=== PATIENT | male | born 1960 | race Two or more races ===

== ENCOUNTER 2025-09-19 10:36 | Emergency (ER) | payer MEDICARE, MEDICAID, SELFPAY ==
--- NOTE | ~2025-09-19 | XR_ITS ---
EXAMINATION: XR FOOT, LEFT CLINICAL INFORMATION: infection, concern for osteo COMPARISON: None available. TECHNIQUE: AP, lateral, and oblique views of the left foot. FINDINGS: There is a moderate size calcaneal heel and retrocalcaneal enthesophyte. No visible acute fracture, dislocation or subluxation seen. The soft tissues are normal. XR/XR foot LT min 3V IMPRESSION: Multiple left foot exam except for moderate size calcaneal heel and retrocalcaneal enthesophyte. Electronically signed by: August Wells MD 09/19/2025 01:56 PM EST
--- NOTE | ~2025-09-19 | XR_ITS ---
EXAMINATION: XR KNEE 4 OR MORE VIEWS LEFT HISTORY: fall COMPARISON: There are no prior studies available for comparison. FINDINGS: Four views of the left knee are submitted. Osseous mineralization is normal. There is no fracture or dislocation. There is moderate osteoarthritis of the medial compartment and mild osteoarthritis of the patellofemoral compartment, with joint space narrowing and osteophyte formation. There is no joint effusion. There are vascular calcifications. XR/XR knee LT 4V IMPRESSION: Osteoarthritis of the left knee as described. Electronically signed by: Raleigh Spears MD 09/19/2025 11:32 AM [facility]
[2025-09-19 10:49] VITALS: BP 143/67; PULSE 76; RESP 20; TEMP 36.7; O2SAT 97; BMI 28.7
--- NOTE | 2025-09-19 10:50 | ED_ITS ---
HPI - Extremity Injury (Lower) General Chief Complaint: Skin/Abscess/Foreign Body Stated Complaint: Left Foot Infection Time Seen by Provider: 09/19/25 12:51 Source: patient Mode of arrival: ambulatory Limitations: no limitations History of Present Illness ED Provider: Juliane Smallwood PA-C HPI Narrative: Patient is a 65 year old male with a history of DM, HLD, fibromyalgia, chronic back pain, OUD now on methadone, GERD, OA, and VICTORIA presenting to the emergency department today with concerns over his left 3rd toe and left knee. Patient states that he fell yesterday and has been having left knee pain since. Patient states that he is also on Cephalexin for a left middle toe infection. Patient states that he is concerned that the toe is getting worse Patient denies any other complaints at this time. Related Data Previous Rx's ?Medication ?Instructions ?Recorded doxycycline hyclate 100 mg tablet 100 mg PO BID 7 days #14 tabs 09/19/25 Allergies Allergy/AdvReac Type Severity Reaction Status Date / Time celecoxib (Celebrex) Allergy Unknown Unknown Verified 09/19/25 10:55 bees Allergy Unknown Anaphylaxis Uncoded 09/19/25 10:55 Review of Systems 2 Constitutional: Constitutional: Reports as per HPI Eyes: Eyes: Reports as per HPI ENT: Reports as per HPI Cardiovascular: Cardiovascular: Reports as per HPI Respiratory: Respiratory: Reports as per HPI Gastrointestinal: Gastrointestinal: Reports as per HPI Genitourinary: Genitourinary: Reports as per HPI Musculoskeletal: Musculoskeletal: Reports as per HPI Integumentary/Breasts: Skin/Breast: Reports as per HPI Neurologic: Reports as per HPI Psychiatric: Psychiatric: Reports as per HPI Endocrine: Endocrine: Reports as per HPI Hematologic/Lymphatic: Hematologic/Lymphatic: Reports as per HPI Allergic/Immunologic: Allergic/Immunologic: Reports as per HPI PMFSH Past Medical History Attestation statement: The following information was validated with the patient. Source: old records reviewed and nursing notes reviewed Social History Social History Advance Directives: No Advance Directives Information Provided: No Do you have a plan to hurt others: No Plan Physical Exam 2 Vital Signs: Vital Signs: Last Vital Signs Temp 98.0 F 09/19/25 14:46 Pulse 76 09/19/25 14:46 Resp 20 09/19/25 14:46 BP 143/67 H 09/19/25 14:46 Pulse Ox 97 09/19/25 14:46 O2 Del Method Room Air 09/19/25 14:46 BMI result Body Mass Index 28.7 Const: General: cooperative, no acute distress, alert and awake Nutritional Appearance: well nourished Orientation/consciousness: patient oriented x3 HEENT: Head: Yes normal to inspection and Yes atraumatic Ears: hearing grossly normal bilaterally and external ears normal General nose exam: Normal external nose present, no nasal discharge noted and no epistaxis Face and sinus: Yes normal facial exam, No abrasion and No laceration Mouth: Normal oral and palatal mucosa present, no drooling and no muffled voice Eyes: General: appearance normal, both eyes and all related structures P eriorbital: periorbital findings normal Eyelids: Yes eyelids normal C onjunctivae: conjunctivae normal Pupils: Equal, round and reactive pupils present EOM: EOMs intact bilaterally Neck: Neck: Yes normal visual inspection and Yes full ROM Resp: Effort & Inspection: normal respiratory effort and able to speak in complete sentences Neuro: General: patient oriented x3, moves all extremities and CN's II-XI intact bilaterally Cranial nerves: Yes Equal, round and reactive pupils present Cognition (Neuro): normal cognition Extrem: Other: Toe nails yellow on both feet Loosely attached nail to left 3rd toe General: Yes full ROM and Yes capillary refill normal Psych: Appearance: grossly normal Mental Status: mental status grossly normal Affect: normal affect Attitude: cooperative Thought process: N ormal thought process present Thought content: Normal thought content present Insight: Good insight present (Psych) Course Course Course Narrative: This is a Rapid Medical Exam performed in triage by Kell Beltran PA-C. Full HPI, ROS and PE to be performed by primary ED provider. 65 yo M w/pmhx DM, in wheelchair, presenting to the ED c/o L foot infection x few days. Admits to fall before the holidays & believes this caused sx - admits to L knee pain & L foot pain. Admits to difficulty ambulating due to pain. Started on PO Abx by Homeless senior care nurse PE: +B/L LE pitting edema, +L foot 2nd toenail dislodged. some malodor Plan: Labs, XR Medical Decision Making Medical Decision Making MDM Narrative: Patient is a 65 year old male with a history of DM, HLD, fibromyalgia, chronic back pain, OUD now on methadone, GERD, OA, and VICTORIA presenting to the emergency department today with concerns over his left 3rd toe and left knee. Patient's physical exam was as noted in the physical exam portion of this note. Patient's blood work showed an ESR of 86 and CRP of 3.36. Patient's left knee x-ray showed no acute process. Patient's left foot x-ray showed no acute process. Patient's clinical presentation is most consistent with left 3rd toe cellulitis. Given patient is already on cephalexin, will add Doxycycline and refer to podiatry for continued foot care. I explained my physical exam findings as well as all test results to the patient. I answered all questions asked by the patient. I stressed the importance of the patient taking his medication as directed (either prescribed or as the over the counter packaging recommends). I stressed the importance of the patient following up with his primary care provider and the podiatry team. I stressed the importance of the patient returning to the emergency department immediately if his symptoms were to worsen or if he were to develop any dizziness, shortness of breath, difficulty breathing, chest pain, blurry vision, loss of vision, nausea, vomiting, abdominal pain, fever, chills, back pain, or any other complaints. Patient verbalized agreement and understanding with this treatment plan and discharge. Differential Diagnosis Differential Diagnoses: The differential diagnosis associated with the presentation includes Cellulitis Knee pain Osteomyelitis Admission/Observation Consideration of admission/observation: Escalation of care including admission/observation considered Patient would have been admitted to the hospital had his work up had any findings where hospital admission was appropriate and his clinical presentation warranted hospital admission. Lab Data [facility] Lab Attestation statement: I reviewed the patient's lab results. My interpretation of these results are in the MDM Rationale portion of this note. 09/19/25 11:13 09/19/25 11:13 Labs: Lab Results 09/19/25 09/19/25 Range/Units 11:13 12:59 WBC 10.0 (4.8-10.8) X10*3/uL RBC 4.53 L (4.60-5.80) X10*6/uL Hgb 12.7 L (14.0-18.0) g/dl Hct 40.1 L (42.0-52.0) % MCV 88.5 (80.0-98.0) fL MCH 28.0 (27.0-33.0) pg MCHC 31.7 (31.0-36.0) g/dl RDW 15.1 (11.0-16.0) % Plt Count 371 (160-400) X10*3/uL MPV 9.8 (9.4-12.4) fL Immature Gran % (Auto) 0.2 (0.0-0.4) % Neut % (Auto) 49.7 (45-73) % Lymph % (Auto) 32.2 (20-40) % [place] % (Auto) 10.4 (2-11) % Eos % (Auto) 6.6 H (0-4) % Baso % (Auto) 0.9 (0-2) % Lymph # (Auto) 3.2 (1.2-4.9) X10*3/uL [place] # (Auto) 1.0 (0.1-1.2) X10*3/uL Eos # (Auto) 0.7 H (0.0-0.4) X10*3/uL Baso # (Auto) 0.1 (0.0-0.2) X10*3/uL Abs Immat Gran (auto) 0.02 (0.00-0.03) X10*3/uL Absolute Neuts (auto) 4.9 (2.0-8.3) x10*3/uL Absolute Nucleated RBC 0.000 (0.0-0.012) X10*3/uL Nucleated RBC % (auto) 0.0 (0.0-0.2) /100WBC ESR 86 H (1-20) MM/HR Sodium 143 (135-145) mmol/L Potassium 3.9 (3.3-5.1) mmol/L Chloride 108 (96-108) mmol/L Carbon Dioxide 26 (22-29) mmol/L Anion Gap 13 (12-20) BUN 23 H (9-16) mg/dL Creatinine 1.10 (0.5-1.4) mg/dL Estim Creat Clear Calc 74.8 Estimated GFR > 60 Random Glucose 76 (60-115) mg/dL Lactic Acid 1.1 (0.5-2.0) mmol/L Calcium 9.0 (8.4-10.2) mg/dL Magnesium 2.0 (1.6-2.6) mg/dL Total Bilirubin 0.3 (0.0-1.0) mg/dL Direct Bilirubin 0.1 (0.0-0.5) mg/dL AST 34 (5-37) U/L ALT 18 (0-40) U/L Alkaline Phosphatase 91 (39-117) U/L C-Reactive Protein 3.36 H (< or = 0.50) mg/dL NT-Pro-B Natriuret Pep 75.3 (<300) pg/mL Total Protein 8.2 H (6.5-8.0) g/dL Albumin 4.3 (3.5-5.0) g/dL Independent Interpretation I performed an independent interpretation of an: Plain X-Ray Interpretation: My interpretation is in agreement with the radiologist's impression of these imaging studies as written below. EXAMINATION: XR FOOT, LEFT CLINICAL INFORMATION: infection, concern for osteo COMPARISON: None available. TECHNIQUE: AP, lateral, and oblique views of the left foot. FINDINGS: There is a moderate size calcaneal heel and retrocalcaneal enthesophyte. No visible acute fracture, dislocation or subluxation seen. The soft tissues are normal. XR/XR foot LT min 3V IMPRESSION: Multiple left foot exam except for moderate size calcaneal heel and retrocalcaneal enthesophyte. Electronically signed by: August Wells MD 09/19/2025 01:56 PM [facility] Dictated By: August Wells MD Signed By: Electronically signed by August Wells MD 09/19/25 1356 EXAMINATION: XR KNEE 4 OR MORE VIEWS LEFT HISTORY: fall COMPARISON: There are no prior studies available for comparison. FINDINGS: Four views of the left knee are submitted. Osseous mineralization is normal. There is no fracture or dislocation. There is moderate osteoarthritis of the medial compartment and mild osteoarthritis of the patellofemoral compartment, with joint space narrowing and osteophyte formation. There is no joint effusion. There are vascular calcifications. XR/XR knee LT 4V IMPRESSION: Osteoarthritis of the left knee as described. Electronically signed by: Raleigh Spears MD 09/19/2025 11:32 AM EST Dictated By: Raleigh Spears MD Signed By: Electronically signed by Raleigh Spears MD 09/19/25 1132 Radiology Impression Discussion of test interpretation with radiology: I have reviewed the radiologist's reading. Prescription Management I considered prescription management with: Antibiotic (patient prescribed doxycycline and instructed to continue taking his already prescribed cephalexin) Chronic Conditions Patient?s care impacted by: Diabetes Discharge Plan Discharge Clinical Impression: Cellulitis Qualifiers: Site of cellulitis: extremity Site of cellulitis of extremity: toe Laterality: left Qualified Code(s): L03.032 - Cellulitis of left toe Patient Disposition: Home, Self-Care Instructions: Cellulitis (ED) Additional Instructions: Your work up today was reassuring. There is no evidence of infection into the bone. Continue taking the antibiotic you already have prescribed. I have prescribed you an additional one that you should take. Given the state of your toes / toe nails - I recommend you follow up with the podiatry team. IF you are prescribed home medications and/or you are taking over the counter medications at home - it is very important you continue to do so as prescribed / directed unless told otherwise by a healthcare provider. Follow up with your primary care provider. Do your best to stay well hydrated and rest. Return to the emergency department immediately if your symptoms worsen or if you develop any numbness, tingling, dizziness, shortness of breath, difficulty breathing, chest pain, blurry vision, loss of vision, nausea, vomiting, abdominal pain, fever, chills, back pain, or any other complaints. L If you do not have a primary care provider - call any of the below numbers to establish and follow up with a primary care provider. [facility] Primary Care ([place]) [phone] [place] [address], [address] [facility] Primary Care ([address] [place] [address]) [phone] [place] [address] Drive, [address] [place], [address] [facility] Primary Care ([address] [facility]) [phone] [place] [address], [address] [place], [address] [facility] Primary Care ([place]) [phone] [place] [address], [address] [place], [address] [facility] Family Medicine [phone] [place] [address], [address] Please see the information below about our Patient Portal. If you are not yet enrolled in the [facility] Patient Portal, you will receive an enrollment email invitation following your visit to any [facility]/formerly [facility] setting. You may also self-enroll in the Patient Portal by visiting our website: [email or web address] The following information is required to access the Patient Portal: - Your [facility] Medical Record Number - Your personal home email address (must match what is in your electronic medical record, Registration staff can assist with this) - Name - Date of Capabilities of the Patient Portal: - Message some providers - View upcoming appointments - Access your health summary, medical history, and visit history - View current conditions and allergies - View procedure and lab results - View your medications, including guidelines, side effects, and precautions - Complete pre-appointment questionnaires requested by your provider - Ready summary reports of your office visits and procedures To access the Patient Portal Mobile Saurabh, follow these directions: - Search Dtime in the [employer]aur[employer] Store or [employer] Store - Download the Saurabh - Search for [facility] - Enter your login/password Prescriptions: New doxycycline hyclate 100 mg tablet 100 mg PO BID 7 Days Qty: 14 0RF Referrals: [facility] Podiatry [Provider Group, Podiatry] Referral Note: Call to establish and follow up with the podiatry team for continue foot / toe health. Eduardo Rainey MD [Primary Care Provider, Internal Medicine] Interventions: ED Discharge Assessment Last Done: 09/19/25 14:46 Discharge Date/Time: 09/19/25 14:47 Print Language: Vietnamese
[2025-09-19 11:22] LABS: MANUAL DIFF FLAG NO
[2025-09-19 11:24] LABS: Hematocrit 40.1 % (42.0-52.0); Hemoglobin 12.7 g/dl (14.0-18.0); Imm Gran Abs Auto 0.02 X10*3/uL (0.00-0.03); Imm Gran Pct Auto 0.2 % (0.0-0.4); Lymphocytes Absolute Auto 3.2 X10*3/uL (1.2-4.9); Mean Corpuscular HGB Conc 31.7 g/dl (31.0-36.0); Mean Corpuscular Hemoglobin 28.0 pg (27.0-33.0); Mean Corpuscular Volume 88.5 fL (80.0-98.0); NRBC Abs Auto 0.000 X10*3/uL (0.0-0.012); NRBC Pct Auto 0.0 /100WBC (0.0-0.2); Platelet Count 371 X10*3/uL (160-400); Red Blood Count 4.53 X10*6/uL (4.60-5.80); White Blood Count 10.0 X10*3/uL (4.8-10.8)
[2025-09-19 11:40] LABS: Alanine Aminotransferase 18 U/L (0-40); Albumin Level 4.3 g/dL (3.5-5.0); Alkaline Phosphatase 91 U/L (39-117); Anion Gap 13 (12-20); Blood Urea Nitrogen 23 mg/dL (9-16); Calcium 9.0 mg/dL (8.4-10.2); Carbon Dioxide 26 mmol/L (22-29); Chloride 108 mmol/L (96-108); Creatinine Clr Calc Pharmacy 74.8; Estimated Glomerular Filt Rate > 60; Magnesium 2.0 mg/dL (1.6-2.6); Potassium 3.9 mmol/L (3.3-5.1); Sodium 143 mmol/L (135-145); Total Protein 8.2 g/dL (6.5-8.0)
[2025-09-19 11:44] LABS: NT Pro B Type Natriuretic Pept 75.3 pg/mL (<300)
[2025-09-19 11:52] LABS: Aspartate Amino Transferase 34 U/L (5-37)
--- OUTSIDE RECORDS SUMMARY | 2025-09-19 13:09 | XMS_ITS | Encounter Summary ---
Author Organization [facility] Address [address] [place] [address] Care Team Providers Care Carrot Grader Inspector Name Role Phone Eduardo Rainey MD Primary Care Provider [phone] Encounter Details Date Type Department Care Team (Late st Contact Info) Description 07/04/[address] [facility] - Main Lab [address] [facility] [place] [address] Guevara Esposito, LINDY [address] [place] [address] Urinary tract infection, site not specified Social History Tobacco Use Types Packs/Day Years Used Date Smoking Tobacco: Never Assessed Sex and Gender Information Value Date Recorded Sex Assigned at Not on file Legal Sex Male 3:01 AM EST Gender Identity Not on file Sexual Orientation Not on file documented as of this encounter Plan of Treatment Not on file documented as of this encounter Procedures Procedure Name Priority Date/Time Associated Diagnosis Comments CULTURE URINE Routine 07/04/2025 1:00 PM EDT Urinary tract infection, site not specified documented in this encounter Results * (ABNORMAL) Culture urine (07/04/2025 1:00 PM EDT) Culture, Urine >=100,000 CFU/mL Escherichia coli(A) KEVYN 07/06/2025 10:23 AM EDT [facility] Urine Urine specimen obtained by clean catch procedure / Unknown 07/04/2025 1:00 PM EDT 07/04/2025 5:49 PM EDT Narrative Organism Antibiotic Method Susceptibility Escherichia coli Amoxicillin/Clavulanate KEVYN 4 ug/ml: Susceptible Escherichia coli Ampicillin/Sulbactam KEVYN 4 ug/ml: Susceptible Escherichia coli Piperacillin/Tazobactam KEVYN <=4 ug/ml: Susceptible Escherichia coli Cefazolin (Urine) KEVYN 2 ug/ml: Susceptible Escherichia coli Cefoxitin KEVYN <=4 ug/ml: Susceptible Escherichia coli Ceftazidime KEVYN <=0.5 ug/ml: Susceptible Escherichia coli Ceftriaxone KEVYN <=0.25 ug/ml: Susceptible Escherichia coli Cefepime KEVYN <=0.12 ug/ml: Susceptible Escherichia coli Meropenem KEVYN <=0.25 ug/ml: Susceptible Escherichia coli Amikacin KEVYN 2 ug/ml: Susceptible Escherichia coli Gentamicin KEVYN >=16 ug/ml: Resistant Escherichia coli Ciprofloxacin KEVYN <=0.06 ug/ml: Susceptible Escherichia coli Levofloxacin KEVYN <=0.12 ug/ml: Susceptible Escherichia coli Nitrofurantoin KEVYN <=16 ug/ml: Susceptible Escherichia coli Trimethoprim/Sulfamethoxazole KEVYN >=320 ug/ml: Resistant [facility] LAB MICROBIOLOGY - GENERAL VERENA ADORE Final Result [facility] [address] [place] [address], documented in this encounter Visit Diagnoses Diagnosis Urinary tract infection, site not specified documented in this encounter Care Teams Carrot Grader Inspector Relationship Specialty Start Date End Date Eduardo Rainey MD [address] [place] [phone] PCP - General Internal Medicine 02/21/25 documented as of this encounter
--- OUTSIDE RECORDS SUMMARY | 2025-09-19 13:09 | XMS_ITS | Clinical Summary ---
Author Organization [facility] Address [address] [place] [address] Phone Care Team Providers Care Cpc Coder Name Role Phone Eduardo Rainey MD Primary Care Provider [phone] Encounters Date Type Department Care Team Description 07/04/2025 Lab Requisition [facility] - Main Lab [address] [facility] [place] [address] Guevara Esposito PA Urinary tract infection, site not specified from Last 3 Months Social History Tobacco Use Types Packs/Day Years Used Date Smoking Tobacco: Never Assessed Sex and Gender Information Value Date Recorded Sex Assigned at Not on file Legal Sex Male 3:01 AM EST Gender Identity Not on file Sexual Orientation Not on file Plan of Treatment Health Maintenance Due Date Last Done Comments Colorectal Cancer Screening: Colonoscopy 1959 Diabetes: Annual GFR (Glomerular Filtration Rate) 1959 Diabetes: Annual Foot Exam 1969 Diabetes: Annual Retina Eye Exam 1969 Hepatitis A Vaccines (1 of 2 - Risk 2-dose series) 1978 Zoster Vaccines (1 of 2) 2009 Abdominal Aortic Aneurysm (AAA) Screen 08/28/2022 Cholesterol Screening (Lipid Panel) 08/28/2022 Hepatitis C Screening 08/28/2022 Medicare Annual Wellness Visit 08/28/2022 Social Influencers of Health Screening 08/28/2022 Falls Risk Assessment 2024 Depression Screening 09/25/2024 COVID-19 Vaccine ( season) 2025 08/19/2024, 08/09/2023, 12/27/2021, Additional history exists Influenza Vaccine (#1) 2025 4, 08/09/2023, 09/12/2022, Additional history exists Diabetes: Annual Urine Albumin-Creatinine Ratio (uACR) 07/08/2025 Diabetes: Blood Sugar Control Test (HGBA1C) 07/08/2025 Pneumococcal Vaccine: 50+ Years (3 of 3 - PCV20 or PCV21) 02/01/2027 02/01/2022, 05/29/2018 RSV Immunization Adult Patients (1 - 1-dose 75+ series) 2034 DTaP,Tdap,and Td Vaccines (6 - Td or Tdap) 02/20/2035 02/20/2025, 12/05/2024, 08/23/2023, Additional history exists HIB Vaccines Aged Out No longer eligi ble based on patient's age to complete this topic HPV Vaccines Aged Out No longer eligi ble based on patient's age to complete this topic Hepatitis B Vaccines Aged Out No long er eligible based on patient's age to complete this topic IPV Vaccines Aged Out No longer eligi ble based on patient's age to complete this topic MMR Vaccines Aged Out No longer eligi ble based on patient's age to complete this topic Meningococcal ACWY Vaccine Aged Out N o longer eligible based on patient's age to complete this topic Meningococcal B Vaccine Aged Out No l onger eligible based on patient's age to complete this topic RSV Immunization Patients Under 20 months Aged Out No longer eligible based on patient's age to complete this topic Varicella Vaccines Aged Out No longer eligible based on patient's age to complete this topic Procedures Procedure Name Priority Date/Time Associated Diagnosis Comments CULTURE URINE Routine 07/04/2025 1:00 PM EDT Urinary tract infection, site not specified from Last 3 Months Results * (ABNORMAL) Culture urine (07/04/2025 1:00 PM EDT) Culture, Urine >=100,000 CFU/mL Escherichia coli(A) KEVYN 07/06/2025 10:23 AM EDT [facility] Urine Urine specimen obtained by clean [...] Escherichia coli Trimethoprim/Sulfamethoxazole KEVYN >=320 ug/ml: Resistant [facility] LAB MICROBIOLOGY - GENERAL ORDE ADORE Final Result [facility] HOSPITAL LAB [address] [place] [address], from Last 3 Months Insurance MEDICAID - [place] MEDICARE [facility] Member Subscriber Plan / Payer (Ef fective 2025-Present) Name:Dominik Estrada Relation to Subscriber:Self Name:Dominik Pinedo Payer ID:[id number] Group ID:[id number] Type:Not on file Address: [address] [place] [address] Care Teams Cpc Coder Relationship Specialty Start Date End Date Eduardo Rainey MD [address] [place] [phone] PCP - General Internal Medicine 02/21/25
--- OUTSIDE RECORDS SUMMARY | 2025-09-19 13:09 | XMS_ITS | Patient Health Record ---
Author Organization [facility] Address [address] [place] [address] Care Team Providers Care Reed Or Wind Instrument Repairer Name Role Phone Brigid Eduardo Primary Care Provider Unava ilable Allergies Allergen (clinical drug ingredient) Drug/Non Drug Allergy documented on EMR Reaction Allergy Type Onset Date Status Bee sting (uncoded) Unknown Allergy Active aspirin Aspirin Unknown Drug Allergy Active bupropion BuPROPion HCl Unknown Drug Allergy Act octavia celecoxib Celebrex Unknown Drug Allergy Active fentanyl Fentanyl Unknown Drug Allergy Active ibuprofen Ibuprofen Unknown Drug Allergy Active pregabalin Lyrica Unknown Drug Allergy Active naproxen Naproxen Unknown Drug Allergy Active quinine Quinine Sulfate Unknown Drug Allergy A ctive Emergen-C Blue Unknown Drug Allergy Ac tive Reason For Referral No Information Medications Medication SIG (Take, Route, Frequency, Duration) Notes Start Date End Date Status Dexilant 60 MG Capsule Delayed Release 1 capsule Orally Once a day Active EpiPen Active glipiZIDE XL 5 MG Tablet Extended Release 24 Hour 1 tablet Orally Once a day Active Aspirin 81 MG Tablet Delayed Release 1 tablet Orally Once a day Active Fluocinonide 0.05 % Cream Externally Active Morphine Sulfate 30mg 1 tablet as needed every 12 hours no longer taking Not-Taking/W[place] N Narcan Active Januvia 100 MG Tablet 1 tablet Orally Once a day Active Restasis Active Methadone HCl 45mg qd in a drink every morning at methadone Clinic Active Allopurinol 300 MG Tablet 1 tablet Orally Once a day Active Amphetamine-Dextroa mphetamine 20 MG Tablet 1 tablet Orally Twice a day Active Gabapentin 300 MG Capsule 1 capsule Orally Three times a day Active traMADol HCl 50 MG Tablet 1 tablet as needed Orally every 6 hrs no longer taking Active Social History Tobacco Use: Social History Observation Description Date Details (start date - stop date) Never Smoker NA - NA Social History Tobacco Use: Social Info Question Answer Notes Tobacco Use/Smoking Are you a nonsmoker Plan Of Treatment No Information Insurance Providers Payer Name Payer Address Payer Phone Subscriber Number Group Number Insured Name Patient Relationship to Insured Coverage Start Date Coverage End Date Medicare B [facility] [address] [place] [id number] RAS ABAD Self - patient is the insured [employer] Medicaid of [place] [address] [place] [address] [id number] RAS ABAD Self - patient is the insured Medical (General) History Medical History History ICD Code Gerd Gout osteoarthitis dyslplemia Surgical History Surgery Date(Month/Year) nephrectomy lithotripsy appendectomy
[2025-09-19 14:46] VITALS: BP 143/67; PULSE 76; RESP 20; TEMP 36.7; O2SAT 97
== END 2025-09-19 14:47 | disposition home or self-care (01) ==
PROVIDERS: Physician Assistant; Emergency Provider Emergency Medicine; PCP Internal Medicine
DX: L03.032 Cellulitis of left toe (principal); M25.562 Pain in left knee; E11.9 Type 2 diabetes mellitus without complications; E78.5 Hyperlipidemia, unspecified; K21.9 Gastro-esophageal reflux disease without esophagitis
CPT/HCPCS: 36415; 73564; 73630; 80048; 80076; 83605; 83735; 83880; 85025; 85652; 86140; 87040; 99282; 99283

== ENCOUNTER → 2025-09-19 10:52 | Outpatient (BNV) | payer MEDICARE, MEDICAID, SELFPAY | PROVIDERS: Visit Provider Radiology Diagnostic Radiology | DX: M17.12 Unilateral primary osteoarthritis, left knee (principal); Z04.3 Encounter for examination and observation following other accident; M77.32 Calcaneal spur, left foot | CPT/HCPCS: 73564; 73630 ==